=== PATIENT | male | born 1955 | race Caucasian/White ===

== ENCOUNTER 2016-10-31 20:51 | Emergency (ER) | payer OTHER ==
--- NOTE | 2016-11-01 02:37 | ER ---
ADMIT: 10/31/2016 RM/LOC: ER [facility] MR#: [id number] [address] [id number] JOCELYNN RINALDI [address] [place] [address] Emergency Room Report SEX: M AGE: 60 : 1955 DATE: 10/31/2016 HISTORY OF PRESENT ILLNESS: The patient is a 60-year-old male with no significant past medical history, came here with chief complaint of moderate pain and laceration on the right distal phalanx of the 5th finger. The patient states he slipped, lost control because of the obstacles on the way and fell with outstretched hand. The patient denies any loss of conscious or head trauma or pain in other parts of the body. The patient states the distal phalanx of the right 5th finger was crushed between the concrete and metal. The incident happened just before coming to the hospital. The patient's vaccination status is unclear. PHYSICAL EXAMINATION: VITAL SIGNS: The patient was afebrile. GENERAL: In mild distress because of the pain, pain was controlled. HEENT: There are no obvious signs of trauma on the head or face or chest or the body except for the right 5th finger. LUNGS: Clear. HEART: Normal heart sounds. ABDOMEN: Soft. EXTREMITIES: In the left hand, there are no abnormalities with normal neurovascular exam. In the right hand, he has normal capillary refillings. There is 1 x 1 cm triangular shape skin avulsion on the palmar side of the distal phalanx of the 5th finger, without any obvious injury to the tendons. Nail bed is intact. Capillary refilling is intact, and the patient has normal sensory grossly. The patient has normal movement of the flexor and extensor, superficial and deep tendons. After anesthetizing the laceration, it was irrigated with copious water, it was explored, no foreign body observed. X-ray showed the patient had avulsion fracture at the tip of the right distal phalanx of the 5th finger. Wound was irrigated and was repaired in 1 layer, approximating the skin. Wound was dressed and was splinted. Knowing that we have no idea if it is the open versus closed fracture, the patient received Ancef IV in the ER. The patient was discharged to home with [place] and Keflex and follow up with the primary doctor as needed. The patient was given the wound care handout and return precautions. Sujit Sanders MD/ joel JOB #: [id number] CC: Sujit Sanders MD, Attending Physician Jasvir Templeton MD, Family Physician
== END 2016-10-31 23:06 | disposition home or self-care (01) ==
LOC: ER 20:51
PROC: 0HQFXZZ Repair Right Hand Skin, External Approach (ICD-10-PCS; principal; 2016-10-31)
DX: S62.636B Displaced fracture of distal phalanx of right little finger, initial encounter for open fracture (principal); S61.216A Laceration without foreign body of right little finger without damage to nail, initial encounter; Z23 Encounter for immunization; W01.0XXA Fall on same level from slipping, tripping and stumbling without subsequent striking against object, initial encounter; Y92.009 Unspecified place in unspecified non-institutional (private) residence as the place of occurrence of the external cause